=== PATIENT | male | born 1960 | race African-American/Black ===

== ENCOUNTER 2019-07-11 19:37 | Inpatient (IN) ==
[2019-07-11] MEDS ORDERED: BISACODYL 5 MG TABLET PO PRN (22:28)
[2019-07-11] MEDS ORDERED: ACETAMINOPHEN 325 MG TABLET PO PRN (22:28)
[2019-07-11] MEDS ORDERED: ONDANSETRON 4 MG/2 ML VIAL IV PRN (22:28)
[2019-07-11] MEDS ORDERED: NICOTINE 21 MG/24 HR PATCH TRANSDERM PRN (22:28)
[2019-07-11] MEDS ORDERED: SODIUM CHLORIDE 0.9% 1,000 ML IV SCH (22:30)
[2019-07-11] MEDS ORDERED: POTASSIUM CHLORIDE RIDER 10 MEQ in PREMIX 1 EACH IV PRN (22:54)
[2019-07-11] MEDS ORDERED: LORazepam 2 MG/1 ML VIAL IV PRN (23:00)
[2019-07-11 23:03] LABS: Basophils % 0.2 % (0.0-0.8); Eosinophils % 0.2 % (0.00-10.9); Hematocrit 31.1 VOL% (42.0-52.0); Hemoglobin 10.6 GM/DL (14.0-18.0); Immature Granulocytes % 0.6 %; Immature Granulocytes Absolute 0.03 #; Lymphocytes # 0.9 10*3/uL (1.4-4.0); Lymphocytes % 18.5 % (21.2-54.2); Mean Corpuscular HGB Conc 34.1 GM/DL (32-36); Mean Corpuscular Volume 100.6 FL (87-102); Mean Platelet Volume 11.5 FL (9.6-12.0); Monocytes % 8.6 % (1.7-12.7); Neutrophils % 71.9 % (38.7-73.9); Red Blood Count 3.09 MC/CUMM (3.8-5.5); White Blood Count 4.9 T/CUMM (4-12)
[2019-07-11 23:10] LABS: Platelet Count 39 T/CUMM (130-400)
[2019-07-11] MEDS ORDERED: THIAMINE INJ 100 MG, FOLIC ACID INJ 1 MG, MULTIVITAMIN INJ 10 ML in SODIUM CHLORIDE 0.9... IV ONE (23:30)
[2019-07-11 23:31] LABS: Bilirubin,Total 0.7 MG/DL (0.2-1.0); Calcium 7.1 MG/DL (8.5-10.1); Osmolality,Calculated 276.8 MOS/KG (273-304); Risk Ratio 2.02; Thyroid Stimulating Hormone 0.48 uIU/ml (0.358-3.74); Total Protein 6.8 G/DL (6.4-8.3); VLDL CHOLESTEROL 14.2 MG/DL
[2019-07-11 23:33] LABS: Band Neutrophils 1 % (0-10); Lymphocytes 22 % (20-55); Segmented Neutrophils 66 % (50-85); Total Cells Counted 100
[2019-07-11 23:34] LABS: Anisocytosis 1+; Platelet Estimate Decreased; Target Cells 1+
[2019-07-11 23:45] LABS: Bilirubin,Direct 0.22 MG/DL (0.0-0.20); Bilirubin,Indirect 0.5 MG/DL (0.0-1.0); Bilirubin,Total 0.7 MG/DL (0.2-1.0); Total Protein 6.9 G/DL (6.4-8.3); Uric Acid 9.4 MG/DL (3.5-7.2)
[2019-07-12] MEDS: POTASSIUM CHLORIDE RIDER 10 MEQ in PREMIX 1 EACH IV PRN ×4 (00:21→04:10)
[2019-07-12 00:53] LABS: Hepatitis B Core IgM Quant 0.08 Index; Hepatitis B Surface Ag Quant 0.21 Index; Hepatitis B Surface Ag Result Negative (Negative); Hepatitis C Virus Ab Quant < 0.02 Index; Hepatitis C Virus Ab Result Negative (Negative)
[2019-07-12] MEDS: MAGNESIUM SULF RIDER 4 GM in PREMIX 1 EACH IV PRN (01:08)
[2019-07-12 05:16] LABS: Basophils % 0.2 % (0.0-0.8); Eosinophils % 0.5 % (0.00-10.9); Hematocrit 30.1 VOL% (42.0-52.0); Hemoglobin 10.4 GM/DL (14.0-18.0); Immature Granulocytes % 0.5 %; Immature Granulocytes Absolute 0.02 #; Lymphocytes % 23.4 % (21.2-54.2); Mean Corpuscular HGB Conc 34.6 GM/DL (32-36); Mean Corpuscular Volume 100.7 FL (87-102); Monocytes % 7.3 % (1.7-12.7); Neutrophils % 68.1 % (38.7-73.9); Platelet Count 41 T/CUMM (130-400); Red Blood Count 2.99 MC/CUMM (3.8-5.5); Red Cell Distribution Width 20.9 % (9.3-17.3); White Blood Count 4.1 T/CUMM (4-12)
[2019-07-12 05:56] LABS: Lymphocytes 27 % (20-55); Segmented Neutrophils 66 % (50-85); Total Cells Counted 100
[2019-07-12 05:58] LABS: Anisocytosis 1+; Hypochromasia Slight; Macrocytosis 1+; Target Cells 2+
[2019-07-12 05:59] LABS: Platelet Estimate Decreased
[2019-07-12] MEDS: FAMOTIDINE 20 MG/2 ML VIAL IV SCH ×2 (06:19→18:20)
[2019-07-12 07:17] LABS: Apearance,Urine CLEAR (Clear); Bacteria,Urine Occasional /HPF (Few); Bilirubin,Urine Negative (Negative); Blood, Urine Negative (Negative); Glucose,Urine (UA) Negative (Negative); Hyaline Casts,Urine 5 /LPF (0-3); Ketones,Urine Negative (Negative); Mucus,Urine Occasional /LPF (Occasional); Nitrite,Urine Negative (Negative); Protein,Urine 100 MG/DL; RBC,Urine 2 /HPF (0-4); Urine Color Amber (Yellow); Urine Specific Gravity 1.021 (1.001-1.035); WBC,Urine 1 /HPF (0-6)
[2019-07-12 07:22] LABS: Barbiturates Screen,Urine Negative (Negative); Benzodiazepines Screen,Urine Negative (Negative); Cannabinoid Screen,Urine Positive (Negative); Opiate Screen,Urine Negative (Negative); Phencyclidine Screen,Urine Negative (Negative)
[2019-07-12] MEDS: SODIUM CHLORIDE 0.9% 1,000 ML IV SCH ×2 (12:21→21:42)
[2019-07-12] MEDS: MAGNESIUM SULF RIDER 2 GM in PREMIX 1 EACH IV PRN (18:32)
[2019-07-12] MEDS ORDERED: chlordiazePOXIDE 25 MG CAPSULE PO PRN (19:07)
[2019-07-12] MEDS: levETIRAcetam 500 MG TABLET PO SCH (21:41)
[2019-07-13] MEDS: LORazepam 2 MG/1 ML VIAL IV PRN ×5 (01:46→22:11)
[2019-07-13] MEDS: FAMOTIDINE 20 MG/2 ML VIAL IV SCH ×2 (06:42→17:09)
[2019-07-13] MEDS: MAGNESIUM SULF RIDER 2 GM in PREMIX 1 EACH IV PRN (08:12)
[2019-07-13] MEDS: levETIRAcetam 500 MG TABLET PO SCH ×2 (08:12→20:52)
[2019-07-13] MEDS: SODIUM CHLORIDE 0.9% 1,000 ML IV SCH ×3 (08:14→17:02)
[2019-07-13] MEDS ORDERED: THIAMINE 100 MG TABLET PO SCH (09:00)
[2019-07-13] MEDS ORDERED: MULTIVITAMIN (CENTRUM) TABLET PO SCH (09:00)
[2019-07-13] MEDS ORDERED: FOLIC ACID 1 MG TABLET PO SCH (09:00)
[2019-07-13 09:07] LABS: Basophils % 0.2 % (0.0-0.8); Eosinophils % 0.2 % (0.00-10.9); Hematocrit 29.6 VOL% (42.0-52.0); Hemoglobin 10.2 GM/DL (14.0-18.0); Immature Granulocytes % 0.3 %; Immature Granulocytes Absolute 0.02 #; Lymphocytes # 0.9 10*3/uL (1.4-4.0); Lymphocytes % 16.1 % (21.2-54.2); Mean Corpuscular HGB Conc 34.5 GM/DL (32-36); Mean Corpuscular Volume 102.1 FL (87-102); Monocytes % 13.3 % (1.7-12.7); NRBC # 0.02 10*3/uL; Neutrophils % 69.9 % (38.7-73.9); White Blood Count 5.7 T/CUMM (4-12)
[2019-07-13 09:19] LABS: Platelet Count 54 T/CUMM (130-400)
[2019-07-13] MEDS: NICOTINE 21 MG/24 HR PATCH TRANSDERM SCH (09:25)
[2019-07-13] MEDS: chlordiazePOXIDE 25 MG CAPSULE PO SCH ×3 (09:25→20:52)
[2019-07-13 09:38] LABS: Calcium 7.3 MG/DL (8.5-10.1); Osmolality,Calculated 271.1 MOS/KG (273-304)
[2019-07-13 09:42] LABS: Hypochromasia 1+; Platelet Estimate Decreased
[2019-07-13] MEDS: THIAMINE INJ 100 MG, FOLIC ACID INJ 1 MG, MULTIVITAMIN INJ 10 ML in SODIUM CHLORIDE 0.9... IV SCH (10:27)
[2019-07-13] MEDS: amLODIPine 10 MG TABLET PO SCH (14:22)
[2019-07-13] MEDS: LOSARTAN 25 MG TABLET PO SCH (14:22)
[2019-07-14] MEDS: SODIUM CHLORIDE 0.9% 1,000 ML IV SCH ×5 (02:06→21:06)
[2019-07-14] MEDS: FAMOTIDINE 20 MG/2 ML VIAL IV SCH ×2 (06:20→18:30)
[2019-07-14] MEDS: MAGNESIUM SULF RIDER 4 GM in PREMIX 1 EACH IV PRN (07:52)
[2019-07-14] MEDS: LORazepam 2 MG/1 ML VIAL IV SCH ×3 (08:48→20:01)
[2019-07-14] MEDS: LOSARTAN 25 MG TABLET PO SCH (08:48)
[2019-07-14] MEDS: levETIRAcetam 500 MG TABLET PO SCH ×2 (08:50→20:01)
[2019-07-14] MEDS: amLODIPine 10 MG TABLET PO SCH (08:50)
[2019-07-14] MEDS: chlordiazePOXIDE 25 MG CAPSULE PO SCH ×3 (08:50→20:01)
[2019-07-14] MEDS: NICOTINE 21 MG/24 HR PATCH TRANSDERM SCH (08:50)
[2019-07-14 09:03] LABS: Basophils % 0.3 % (0.0-0.8); Eosinophils % 0.3 % (0.00-10.9); Hematocrit 32.2 VOL% (42.0-52.0); Immature Granulocytes % 0.5 %; Immature Granulocytes Absolute 0.03 #; Lymphocytes # 0.9 10*3/uL (1.4-4.0); Lymphocytes % 14.5 % (21.2-54.2); Mean Corpuscular HGB Conc 34.2 GM/DL (32-36); Mean Corpuscular Volume 102.2 FL (87-102); Mean Platelet Volume 11.5 FL (9.6-12.0); Monocytes % 16.3 % (1.7-12.7); Neutrophils % 68.1 % (38.7-73.9); Platelet Count 76 T/CUMM (130-400); Red Blood Count 3.15 MC/CUMM (3.8-5.5); Red Cell Distribution Width 21.2 % (9.3-17.3)
[2019-07-14 09:17] LABS: Albumin 2.7 G/DL (3.4-5.0); Bilirubin,Total 0.9 MG/DL (0.2-1.0); Calcium 8.2 MG/DL (8.5-10.1); Total Protein 7.3 G/DL (6.4-8.3)
[2019-07-14 09:33] LABS: Anisocytosis 2+; Lymphocytes 14 % (20-55); Macrocytosis 2+; Platelet Estimate Decreased; Segmented Neutrophils 65 % (50-85); Total Cells Counted 100
[2019-07-14] MEDS: THIAMINE INJ 100 MG, FOLIC ACID INJ 1 MG, MULTIVITAMIN INJ 10 ML in SODIUM CHLORIDE 0.9... IV SCH (10:17)
[2019-07-14] MEDS: POTASSIUM CHLORIDE 20 MEQ TABLET PO PRN (18:39)
[2019-07-14] MEDS: diphenhydrAMINE CAP 25 MG CAPSULE PO PRN (19:58)
[2019-07-14] MEDS: LORazepam 2 MG/1 ML VIAL IV PRN (22:35)
[2019-07-15] MEDS: LORazepam 2 MG/1 ML VIAL IV PRN ×5 (03:39→22:32)
[2019-07-15] MEDS: SODIUM CHLORIDE 0.9% 1,000 ML IV SCH ×5 (03:45→22:39)
[2019-07-15] MEDS: FAMOTIDINE 20 MG/2 ML VIAL IV SCH ×2 (05:06→18:19)
[2019-07-15 05:45] LABS: Basophils % 0.2 % (0.0-0.8); Eosinophils % 0.7 % (0.00-10.9); Hematocrit 31.3 VOL% (42.0-52.0); Hemoglobin 10.8 GM/DL (14.0-18.0); Immature Granulocytes % 0.2 %; Immature Granulocytes Absolute 0.01 #; Lymphocytes # 0.9 10*3/uL (1.4-4.0); Lymphocytes % 15.2 % (21.2-54.2); Mean Corpuscular HGB Conc 34.5 GM/DL (32-36); Mean Corpuscular Volume 100.6 FL (87-102); Mean Platelet Volume 11.3 FL (9.6-12.0); Monocytes % 19.3 % (1.7-12.7); Neutrophils % 64.4 % (38.7-73.9); Platelet Count 128 T/CUMM (130-400); Red Blood Count 3.11 MC/CUMM (3.8-5.5); Red Cell Distribution Width 20.7 % (9.3-17.3); White Blood Count 5.6 T/CUMM (4-12)
[2019-07-15 05:58] LABS: Calcium 8.4 MG/DL (8.5-10.1); Osmolality,Calculated 274.7 MOS/KG (273-304)
[2019-07-15] MEDS: MAGNESIUM SULF RIDER 2 GM in PREMIX 1 EACH IV PRN ×2 (06:23→09:46)
[2019-07-15] MEDS: POTASSIUM CHLORIDE 20 MEQ TABLET PO PRN ×3 (06:23→10:33)
[2019-07-15 06:35] LABS: Lymphocytes 18 % (20-55); Polychromasia Few; Segmented Neutrophils 70 % (50-85); Target Cells Few; Total Cells Counted 100
[2019-07-15 06:36] LABS: Platelet Estimate Decreased
[2019-07-15] MEDS ORDERED: KETOROLAC 30 MG/1 ML VIAL IV ONE (07:45)
[2019-07-15] MEDS: chlordiazePOXIDE 25 MG CAPSULE PO SCH ×3 (08:39→21:01)
[2019-07-15] MEDS: NICOTINE 21 MG/24 HR PATCH TRANSDERM SCH (08:39)
[2019-07-15] MEDS: LOSARTAN 25 MG TABLET PO SCH (08:39)
[2019-07-15] MEDS: levETIRAcetam 500 MG TABLET PO SCH ×2 (08:39→21:01)
[2019-07-15] MEDS: amLODIPine 10 MG TABLET PO SCH (08:39)
[2019-07-15] MEDS: THIAMINE INJ 100 MG, FOLIC ACID INJ 1 MG, MULTIVITAMIN INJ 10 ML in SODIUM CHLORIDE 0.9... IV SCH (09:04)
[2019-07-15] MEDS ORDERED: LORazepam 2 MG/1 ML VIAL ONE ×3 (11:07→18:05)
[2019-07-16] MEDS: LORazepam 2 MG/1 ML VIAL IV PRN ×4 (01:13→13:00)
[2019-07-16] MEDS: FAMOTIDINE 20 MG/2 ML VIAL IV SCH ×2 (06:12→18:05)
[2019-07-16] MEDS: SODIUM CHLORIDE 0.9% 1,000 ML IV SCH ×3 (06:52→18:08)
[2019-07-16] MEDS: NICOTINE 21 MG/24 HR PATCH TRANSDERM SCH (08:42)
[2019-07-16] MEDS: levETIRAcetam 500 MG TABLET PO SCH ×2 (08:42→21:25)
[2019-07-16] MEDS: LOSARTAN 25 MG TABLET PO SCH (08:43)
[2019-07-16] MEDS: chlordiazePOXIDE 25 MG CAPSULE PO SCH ×3 (08:43→21:26)
[2019-07-16] MEDS: amLODIPine 10 MG TABLET PO SCH (08:43)
[2019-07-16] MEDS: THIAMINE INJ 100 MG, FOLIC ACID INJ 1 MG, MULTIVITAMIN INJ 10 ML in SODIUM CHLORIDE 0.9... IV SCH (09:11)
[2019-07-16] MEDS ORDERED: LORazepam 2 MG/1 ML VIAL ONE (10:40)
[2019-07-16] MEDS ORDERED: MAGNESIUM SULF RIDER 4 GM in PREMIX 1 EACH IV ONE (11:00)
[2019-07-16] MEDS ORDERED: ACETAMINOPHEN 650 MG SUPP RECTAL PRN (15:06)
[2019-07-16 16:17] LABS: Apearance,Urine CLEAR (Clear); Bilirubin,Urine Negative (Negative); Blood, Urine Negative (Negative); Glucose,Urine (UA) Negative (Negative); Ketones,Urine Negative (Negative); Nitrite,Urine Negative (Negative); Protein,Urine Negative; RBC,Urine 1 /HPF (0-4); Urine Color Yellow (Yellow); WBC,Urine 1 /HPF (0-6)
[2019-07-17] MEDS: SODIUM CHLORIDE 0.9% 1,000 ML IV SCH ×5 (01:50→23:05)
[2019-07-17] MEDS: FAMOTIDINE 20 MG/2 ML VIAL IV SCH (05:58)
[2019-07-17 06:22] LABS: Basophils % 0.4 % (0.0-0.8); Eosinophils # 0.1 10*3/uL (0.0-0.87); Eosinophils % 1.1 % (0.00-10.9); Hematocrit 28.1 VOL% (42.0-52.0); Hemoglobin 9.6 GM/DL (14.0-18.0); Immature Granulocytes % 0.2 %; Immature Granulocytes Absolute 0.01 #; Lymphocytes # 0.8 10*3/uL (1.4-4.0); Lymphocytes % 18.2 % (21.2-54.2); Mean Corpuscular HGB Conc 34.2 GM/DL (32-36); Mean Platelet Volume 10.5 FL (9.6-12.0); Monocytes % 16.7 % (1.7-12.7); Neutrophils % 63.4 % (38.7-73.9); Platelet Count 215 T/CUMM (130-400); Red Blood Count 2.81 MC/CUMM (3.8-5.5); Red Cell Distribution Width 20.9 % (9.3-17.3); White Blood Count 4.5 T/CUMM (4-12)
[2019-07-17 06:41] LABS: Albumin 1.9 G/DL (3.4-5.0); Bilirubin,Total 0.5 MG/DL (0.2-1.0); Calcium 8.5 MG/DL (8.5-10.1); Osmolality,Calculated 276.4 MOS/KG (273-304); Total Protein 6.2 G/DL (6.4-8.3)
[2019-07-17 07:16] LABS: Eosinophils 1 % (0-10); Hypochromasia 1+; Lymphocytes 18 % (20-55); Platelet Estimate Adequate; Segmented Neutrophils 75 % (50-85); Total Cells Counted 100
[2019-07-17] MEDS: POTASSIUM CHLORIDE 20 MEQ TABLET PO PRN ×2 (08:05→10:50)
[2019-07-17] MEDS: LOSARTAN 25 MG TABLET PO SCH ×2 (08:05→21:41)
[2019-07-17] MEDS: chlordiazePOXIDE 25 MG CAPSULE PO SCH ×3 (08:05→21:41)
[2019-07-17] MEDS: MAGNESIUM SULF RIDER 4 GM in PREMIX 1 EACH IV PRN (08:05)
[2019-07-17] MEDS: amLODIPine 10 MG TABLET PO SCH (08:05)
[2019-07-17] MEDS: levETIRAcetam 500 MG TABLET PO SCH ×2 (08:05→21:41)
[2019-07-17] MEDS: NICOTINE 21 MG/24 HR PATCH TRANSDERM SCH (08:05)
[2019-07-17] MEDS: LORazepam 2 MG/1 ML VIAL IV PRN ×3 (09:25→21:43)
[2019-07-17] MEDS: THIAMINE INJ 100 MG, FOLIC ACID INJ 1 MG, MULTIVITAMIN INJ 10 ML in SODIUM CHLORIDE 0.9... IV SCH (12:43)
[2019-07-17] MEDS: MAGNESIUM OXIDE 400 MG TABLET PO SCH ×2 (15:54→21:40)
[2019-07-17] MEDS ORDERED: LORazepam 2 MG/1 ML VIAL ONE (21:37)
[2019-07-17] MEDS: FAMOTIDINE 20 MG TABLET PO SCH (21:41)
[2019-07-18 04:52] LABS: Basophils % 0.4 % (0.0-0.8); Eosinophils # 0.1 10*3/uL (0.0-0.87); Eosinophils % 1.8 % (0.00-10.9); Hemoglobin 7.9 GM/DL (14.0-18.0); Immature Granulocytes % 0.5 %; Immature Granulocytes Absolute 0.03 #; Lymphocytes % 17.2 % (21.2-54.2); Mean Corpuscular HGB Conc 34.3 GM/DL (32-36); Mean Corpuscular Volume 99.6 FL (87-102); Mean Platelet Volume 10.9 FL (9.6-12.0); Monocytes % 9.8 % (1.7-12.7); Neutrophils % 70.3 % (38.7-73.9); Platelet Count 257 T/CUMM (130-400); Red Blood Count 2.31 MC/CUMM (3.8-5.5); Red Cell Distribution Width 21.4 % (9.3-17.3); White Blood Count 5.7 T/CUMM (4-12)
[2019-07-18 05:09] LABS: Calcium 8.5 MG/DL (8.5-10.1); Osmolality,Calculated 286.7 MOS/KG (273-304)
[2019-07-18] MEDS: LORazepam 2 MG/1 ML VIAL IV PRN ×3 (05:30→22:42)
[2019-07-18] MEDS: MAGNESIUM SULF RIDER 4 GM in PREMIX 1 EACH IV PRN (06:04)
[2019-07-18] MEDS: hydrALAZINE 20 MG/1 ML VIAL IV PRN (06:15)
[2019-07-18] MEDS: LOSARTAN 25 MG TABLET PO SCH ×2 (08:38→21:23)
[2019-07-18] MEDS: levETIRAcetam 500 MG TABLET PO SCH ×2 (08:38→21:23)
[2019-07-18] MEDS: THIAMINE INJ 100 MG, FOLIC ACID INJ 1 MG, MULTIVITAMIN INJ 10 ML in SODIUM CHLORIDE 0.9... IV SCH (08:38)
[2019-07-18] MEDS: amLODIPine 10 MG TABLET PO SCH (08:38)
[2019-07-18] MEDS: chlordiazePOXIDE 25 MG CAPSULE PO SCH ×3 (08:38→21:23)
[2019-07-18] MEDS: FAMOTIDINE 20 MG TABLET PO SCH ×2 (08:38→21:22)
[2019-07-18] MEDS: MAGNESIUM OXIDE 400 MG TABLET PO SCH ×3 (08:38→21:23)
[2019-07-18] MEDS: NICOTINE 21 MG/24 HR PATCH TRANSDERM SCH (08:39)
[2019-07-18 12:10] LABS: Hematocrit 27.6 VOL% (42.0-52.0); Hemoglobin 9.3 GM/DL (14.0-18.0)
[2019-07-18] MEDS: SODIUM CHLORIDE 0.9% 1,000 ML IV SCH (14:14)
[2019-07-18] MEDS: diphenhydrAMINE CAP 25 MG CAPSULE PO PRN (21:22)
[2019-07-18] MEDS ORDERED: LORazepam 2 MG/1 ML VIAL ONE (21:46)
[2019-07-19] MEDS: SODIUM CHLORIDE 0.9% 1,000 ML IV SCH ×2 (01:34→11:09)
[2019-07-19] MEDS: hydrALAZINE 20 MG/1 ML VIAL IV PRN ×2 (03:44→17:51)
[2019-07-19] MEDS: FAMOTIDINE 20 MG TABLET PO SCH ×2 (08:43→21:30)
[2019-07-19] MEDS: levETIRAcetam 500 MG TABLET PO SCH ×2 (08:43→21:29)
[2019-07-19] MEDS: MAGNESIUM OXIDE 400 MG TABLET PO SCH ×3 (08:43→21:29)
[2019-07-19] MEDS: LOSARTAN 25 MG TABLET PO SCH ×2 (08:43→21:30)
[2019-07-19] MEDS: NICOTINE 21 MG/24 HR PATCH TRANSDERM SCH (08:43)
[2019-07-19] MEDS: chlordiazePOXIDE 25 MG CAPSULE PO SCH ×3 (08:43→21:29)
[2019-07-19] MEDS: amLODIPine 10 MG TABLET PO SCH (08:43)
[2019-07-19 09:10] LABS: Calcium 8.9 MG/DL (8.5-10.1); Osmolality,Calculated 280.1 MOS/KG (273-304)
[2019-07-19] MEDS: THIAMINE INJ 100 MG, FOLIC ACID INJ 1 MG, MULTIVITAMIN INJ 10 ML in SODIUM CHLORIDE 0.9... IV SCH (09:29)
[2019-07-19] MEDS ORDERED: SODIUM CHLORIDE 0.9% IV ONE (15:00)
[2019-07-19] MEDS ORDERED: MAGNESIUM SULF IV ONE (15:00)
[2019-07-19] MEDS ORDERED: LORazepam 2 MG/1 ML VIAL ONE (17:24)
[2019-07-19] MEDS: LORazepam 2 MG/1 ML VIAL IV PRN (17:25)
[2019-07-19] MEDS: diphenhydrAMINE CAP 25 MG CAPSULE PO PRN (21:30)
[2019-07-20] MEDS: LORazepam 2 MG/1 ML VIAL IV PRN ×3 (03:42→12:01)
[2019-07-20] MEDS: diphenhydrAMINE CAP 25 MG CAPSULE PO PRN (03:43)
[2019-07-20 06:58] LABS: Basophils % 0.6 % (0.0-0.8); Eosinophils # 0.1 10*3/uL (0.0-0.87); Eosinophils % 0.9 % (0.00-10.9); Hematocrit 25.2 VOL% (42.0-52.0); Hemoglobin 8.5 GM/DL (14.0-18.0); Immature Granulocytes % 0.4 %; Immature Granulocytes Absolute 0.03 #; Lymphocytes # 1.1 10*3/uL (1.4-4.0); Lymphocytes % 16.6 % (21.2-54.2); Mean Corpuscular HGB Conc 33.7 GM/DL (32-36); Mean Corpuscular Volume 99.6 FL (87-102); Mean Platelet Volume 10.6 FL (9.6-12.0); Neutrophils % 73.5 % (38.7-73.9); Platelet Count 395 T/CUMM (130-400); Red Blood Count 2.53 MC/CUMM (3.8-5.5); Red Cell Distribution Width 21.8 % (9.3-17.3); White Blood Count 6.7 T/CUMM (4-12)
[2019-07-20 07:26] LABS: Calcium 8.8 MG/DL (8.5-10.1)
[2019-07-20] MEDS: NICOTINE 21 MG/24 HR PATCH TRANSDERM SCH (09:21)
[2019-07-20] MEDS: FAMOTIDINE 20 MG TABLET PO SCH ×2 (09:22→21:59)
[2019-07-20] MEDS: LOSARTAN 25 MG TABLET PO SCH ×2 (09:22→21:59)
[2019-07-20] MEDS: chlordiazePOXIDE 25 MG CAPSULE PO SCH ×2 (09:22→14:58)
[2019-07-20] MEDS: SODIUM CHLORIDE 0.9% 1,000 ML IV SCH (09:22)
[2019-07-20] MEDS: levETIRAcetam 500 MG TABLET PO SCH ×2 (09:23→21:59)
[2019-07-20] MEDS: MAGNESIUM OXIDE 400 MG TABLET PO SCH ×3 (09:23→21:59)
[2019-07-20] MEDS: amLODIPine 10 MG TABLET PO SCH (09:23)
[2019-07-20] MEDS: THIAMINE INJ 100 MG, FOLIC ACID INJ 1 MG, MULTIVITAMIN INJ 10 ML in SODIUM CHLORIDE 0.9... IV SCH (09:23)
[2019-07-20] MEDS: MAGNESIUM SULF RIDER 2 GM in PREMIX 1 EACH IV PRN (10:15)
[2019-07-21] MEDS: SODIUM CHLORIDE 0.9% 1,000 ML IV SCH (04:19)
[2019-07-21 06:26] LABS: Basophils # 0.1 10*3/uL (0.0-0.2); Basophils % 1.1 % (0.0-0.8); Eosinophils # 0.1 10*3/uL (0.0-0.87); Eosinophils % 0.8 % (0.00-10.9); Hematocrit 29.3 VOL% (42.0-52.0); Hemoglobin 9.7 GM/DL (14.0-18.0); Immature Granulocytes % 0.5 %; Immature Granulocytes Absolute 0.03 #; Lymphocytes % 15.7 % (21.2-54.2); Mean Corpuscular HGB Conc 33.1 GM/DL (32-36); Mean Corpuscular Volume 102.1 FL (87-102); Mean Platelet Volume 11.1 FL (9.6-12.0); Monocytes % 7.6 % (1.7-12.7); Neutrophils % 74.3 % (38.7-73.9); Platelet Count 426 T/CUMM (130-400); Red Blood Count 2.87 MC/CUMM (3.8-5.5); White Blood Count 6.4 T/CUMM (4-12)
[2019-07-21 06:47] LABS: Alanine Aminotransferase 25 U/L (16-61); Albumin 2.4 G/DL (3.4-5.0); Alkaline Phosphatase 79 U/L (45-117); Aspartate Amino Transferase 35 U/L (0-37); Bilirubin,Direct < 0.050 MG/DL (0.0-0.20); Bilirubin,Indirect 0.5 MG/DL (0.0-1.0); Blood Urea Nitrogen 10 MG/DL (7-18); Calcium 9.5 MG/DL (8.5-10.1); Estimated Glom Filtration Rate 116 ML/MIN; Glucose 73 MG/DL (74-106); Osmolality,Calculated 287.6 MOS/KG (273-304); Total Protein 7.2 G/DL (6.4-8.3)
[2019-07-21 07:01] LABS: Hypochromasia 1+; Platelet Estimate Increased; Target Cells Few
[2019-07-21] MEDS: THIAMINE INJ 100 MG, FOLIC ACID INJ 1 MG, MULTIVITAMIN INJ 10 ML in SODIUM CHLORIDE 0.9... IV SCH (10:22)
[2019-07-21] MEDS: FAMOTIDINE 20 MG TABLET PO SCH ×2 (10:26→21:29)
[2019-07-21] MEDS: MAGNESIUM OXIDE 400 MG TABLET PO SCH ×3 (10:26→21:28)
[2019-07-21] MEDS: levETIRAcetam 500 MG TABLET PO SCH ×2 (10:27→21:29)
[2019-07-21] MEDS: LOSARTAN 25 MG TABLET PO SCH ×2 (10:27→21:29)
[2019-07-21] MEDS: amLODIPine 10 MG TABLET PO SCH (10:27)
[2019-07-21] MEDS: NICOTINE 21 MG/24 HR PATCH TRANSDERM SCH (10:32)
[2019-07-21] MEDS: LORazepam 2 MG/1 ML VIAL IV PRN ×2 (12:23→22:31)
[2019-07-22] MEDS: SODIUM CHLORIDE 0.9% 1,000 ML IV SCH (00:37)
[2019-07-22 05:56] LABS: Basophils # 0.1 10*3/uL (0.0-0.2); Basophils % 0.8 % (0.0-0.8); Eosinophils # 0.1 10*3/uL (0.0-0.87); Eosinophils % 1.3 % (0.00-10.9); Hematocrit 24.7 VOL% (42.0-52.0); Hemoglobin 8.3 GM/DL (14.0-18.0); Immature Granulocytes % 0.3 %; Immature Granulocytes Absolute 0.02 #; Lymphocytes # 1.3 10*3/uL (1.4-4.0); Lymphocytes % 21.5 % (21.2-54.2); Mean Corpuscular HGB Conc 33.6 GM/DL (32-36); Mean Platelet Volume 10.5 FL (9.6-12.0); Monocytes % 10.1 % (1.7-12.7); Platelet Count 477 T/CUMM (130-400); Red Blood Count 2.47 MC/CUMM (3.8-5.5); White Blood Count 6.2 T/CUMM (4-12)
[2019-07-22 06:29] LABS: Calcium 8.8 MG/DL (8.5-10.1); Osmolality,Calculated 280.1 MOS/KG (273-304)
[2019-07-22] MEDS: MAGNESIUM SULF RIDER 4 GM in PREMIX 1 EACH IV PRN (09:45)
[2019-07-22] MEDS: amLODIPine 10 MG TABLET PO SCH (09:46)
[2019-07-22] MEDS: LOSARTAN 25 MG TABLET PO SCH ×2 (09:46→21:22)
[2019-07-22] MEDS: levETIRAcetam 500 MG TABLET PO SCH ×2 (09:46→21:22)
[2019-07-22] MEDS: NICOTINE 21 MG/24 HR PATCH TRANSDERM SCH (09:46)
[2019-07-22] MEDS: FAMOTIDINE 20 MG TABLET PO SCH ×2 (09:46→21:21)
[2019-07-22] MEDS: MAGNESIUM OXIDE 400 MG TABLET PO SCH ×3 (09:46→21:22)
[2019-07-22] MEDS: THIAMINE INJ 100 MG, FOLIC ACID INJ 1 MG, MULTIVITAMIN INJ 10 ML in SODIUM CHLORIDE 0.9... IV SCH (11:26)
[2019-07-22] MEDS ORDERED: LORazepam 2 MG/1 ML VIAL IV PRN (16:58)
[2019-07-23] MEDS: diphenhydrAMINE CAP 25 MG CAPSULE PO PRN (02:44)
[2019-07-23] MEDS ORDERED: MULTIVITAMIN (BEROCCA) TABLET PO SCH (09:00)
[2019-07-23] MEDS: LOSARTAN 25 MG TABLET PO SCH (09:07)
[2019-07-23] MEDS: FAMOTIDINE 20 MG TABLET PO SCH (09:07)
[2019-07-23] MEDS: levETIRAcetam 500 MG TABLET PO SCH (09:07)
[2019-07-23] MEDS: amLODIPine 10 MG TABLET PO SCH (09:07)
[2019-07-23] MEDS: MAGNESIUM OXIDE 400 MG TABLET PO SCH (09:08)
[2019-07-23] MEDS: NICOTINE 21 MG/24 HR PATCH TRANSDERM SCH (09:08)
[2019-07-23] MEDS ORDERED: MAGNESIUM SULF RIDER 4 GM in PREMIX 1 EACH IV ONE (10:10)
[2019-07-23] MEDS: THIAMINE INJ 100 MG, FOLIC ACID INJ 1 MG, MULTIVITAMIN INJ 10 ML in SODIUM CHLORIDE 0.9... IV SCH (11:30)
[2019-07-23 12:28] VITALS: BP 146/87
== END 2019-07-23 14:10 | disposition home health service (06) | DRG 897 ==
LOC: N.4E → SUATTDRO 21:15 → N.ICU 07-14 10:01 → N.4E 07-19 20:11
PROVIDERS: ADMIT Internal Medicine; ATTEND Hospitalist